=== PATIENT | male | born 1995 | race Caucasian/White ===

== ENCOUNTER 2022-02-26 13:07 | Inpatient (IN) | payer OTHER, BC ==
[2022-02-26] MEDS ORDERED: Fentanyl 100 MCG/2 ML VIAL ONE ×2 (13:27→15:16)
[2022-02-26] MEDS ORDERED: ISOVUE-370 76%-LOCM 1 ML ONE (13:35)
[2022-02-26 13:44] LABS: #Eosinphils 0.2 thou/uL (0.0-0.7); #Lymphocytes 1.8 thou/uL (1.20-3.40); #Monocytes 0.7 thou/uL (0.11-0.59); #Neutrophils 13.2 thou/uL (1.40-6.50); %Basophils 0.3 % (0.0-1.0); %Eosinophils 1.2 % (0.0-10.0); %Monocytes 4.6 % (0.0-10.0); %Neutrophils 82.9 % (42.0-75.0); Hemoglobin 16.3 g/dL (14.0-18.0); Mean Corpuscular HGB CONC 34.3 g/dL (32.0-36.0); Mean Corpuscular Volume 90.5 fL (78.0-98.0); Mean Platelet Volume 7.6 fL (7.4-10.4); Platelet Count 205 thou/uL (130-400); RBC Distribution Width 11.7 % (11.5-14.5); Red Blood Cell (RBC) Count 5.27 mill/uL (4.70-6.10); White Blood Cell (WBC) Count 15.9 thou/uL (4.8-10.8)
[2022-02-26 13:58] LABS: Prothrombin Time 13.7 sec (12.0-14.7)
[2022-02-26 14:05] LABS: PTT 19.8 sec (22.9-36.1)
[2022-02-26 14:06] LABS: ALT (SGPT) 80 U/L (8-55); AST (SGOT) 37 U/L (5-34); Albumin 4.5 g/dL (3.5-5.0); Alkaline Phosphatase 75 U/L (40-110); Anion Gap 14 mmol/L (10-20); BUN (Urea Nitrogen) 12 mg/dL (8.9-20.6); Bilirubin, Total 1.2 mg/dL (0.2-1.2); Calc. Creatinine Clearance 0 mL/min (70-130); Calcium 9.8 mg/dL (7.8-10.44); Carbon Dioxide 23 mmol/L (22-29); Chloride 105 mmol/L (98-107); Globulin 2.8 g/dL (2.4-3.5); Glucose 107 mg/dL (70-105); Potassium 3.8 mmol/L (3.5-5.1); Protein, Total 7.3 g/dL (6.0-8.3); Sodium 138 mmol/L (136-145)
[2022-02-26] MEDS ORDERED: Boostrix 0.5 ML (Tdap) VIAL ONE (14:38)
[2022-02-26] MEDS ORDERED: Ondansetron PF 4 MG/2 ML Vial ONE (14:38)
[2022-02-26] MEDS ORDERED: CEFAZOLIN 2 GM VIAL ONE (15:39)
[2022-02-26] MEDS ORDERED: Ketorolac Tromethamine 30 MG/ML VIAL ONE (15:39)
[2022-02-26] MEDS ORDERED: Dextrose 5% in Water 1,000 ML IV PRN (15:49)
[2022-02-26] MEDS ORDERED: Dextrose 50% Abboject 50 ML SYRINGE SLOW IVP PRN (15:49)
[2022-02-26] MEDS ORDERED: hydrALAZINE 20 MG/ML VIAL SLOW IVP PRN (15:49)
[2022-02-26] MEDS ORDERED: Ondansetron PF 4 MG/2 ML Vial IVP PRN (15:49)
[2022-02-26] MEDS ORDERED: Sodium Chloride 0.9% 1,000 ML IV SCH (16:00)
[2022-02-26 16:12] LABS: Lactic Acid 0.8 mmol/L (0.5-2.2)
[2022-02-26 16:15] LABS: Alcohol Less than 10 mg/dL (Less than 10); Magnesium 1.9 mg/dL (1.6-2.6); Phosphorus 2.5 mg/dL (2.3-4.7)
[2022-02-26] MEDS ORDERED: Potassium Phosphate 15 MMOL in Sodium Chloride 0.9% 250 ML 250 ML IVPB SCH (16:45)
[2022-02-26] MEDS: Acetaminophen/Codeine 30-300mg Tablet PO SCH ×2 (18:08→23:09)
[2022-02-26] MEDS: Morphine 4 MG/ML VIAL SLOW IVP PRN ×2 (18:13→23:10)
[2022-02-26] MEDS: Ketorolac Tromethamine 30 MG/ML VIAL IVP SCH ×2 (18:14→23:09)
[2022-02-26] MEDS: CEFAZOLIN 2 GM in Sodium Chloride 0.9% 100 ML IVPB SCH ×2 (18:19→18:33)
[2022-02-26 19:59] VITALS: BMI 23.7
[2022-02-26] MEDS: Gabapentin 300 MG CAP PO SCH (20:42)
[2022-02-26] MEDS: Senokot S 8.6-50 MG TAB PO SCH (20:44)
[2022-02-26] MEDS: Famotidine 20 MG TAB PO SCH (20:44)
[2022-02-26] MEDS: Silver Sulfadiazine 50 GM TUBE TOP SCH (22:17)
[2022-02-26 22:56] LABS: Bacteria/HPF None Seen HPF (None Seen); Bilirubin Negative (Negative); Blood, Urine Negative (Negative); Clarity Clear (Clear); Glucose, Urine (Dipstick) Normal (Negative); Ketone, Urine Trace mg/dL (Negative); Leukocyte Negative Leu/uL (Negative); Nitrite Negative (Negative); Protein, Urine (Dipstick) Negative (Neg-Trace); RBC/HPF 0-3 HPF (0-3); Specific Gravity, Urine 1.047 (1.002-1.036); Squamous Epithelial None Seen HPF (0-3); Urobilinogen Normal mg/dL (Less than 2); WBC/HPF 0-3 HPF (0-3)
[2022-02-26 23:00] LABS: Urine Culture Reflex No No
[2022-02-26 23:04] LABS: Amphetamine Not Detected (NotDetected); Barbiturates Screen Not Detected (NotDetected); Benzodiazepine Screen Not Detected (NotDetected); Cocaine Metabolite Screen Not Detected (NotDetected); Methadone Not Detected (NotDetected); Methamphetamine Not Detected (NotDetected); Opiate Screen Detected (NotDetected); Oxycodone Screen Not Detected (NotDetected); Phencyclidine (PCP) Not Detected (NotDetected); THC/Cannabinoid Screen Not Detected (NotDetected); Tricyclic Screen Not Detected (NotDetected)
[2022-02-26] MEDS: Acetaminophen/Codeine 30-300mg Tablet PO PRN (23:13)
[2022-02-27] MEDS: Morphine 4 MG/ML VIAL SLOW IVP PRN ×5 (03:08→20:00)
[2022-02-27] MEDS: Acetaminophen/Codeine 30-300mg Tablet PO SCH ×4 (05:48→23:41)
[2022-02-27] MEDS: Acetaminophen/Codeine 30-300mg Tablet PO PRN ×2 (05:49→11:43)
[2022-02-27] MEDS: Ketorolac Tromethamine 30 MG/ML VIAL IVP SCH ×4 (05:50→23:42)
[2022-02-27 06:32] LABS: #Basophils 0.1 thou/uL (0.0-0.2); #Eosinphils 0.2 thou/uL (0.0-0.7); #Lymphocytes 2.2 thou/uL (1.20-3.40); #Monocytes 0.8 thou/uL (0.11-0.59); #Neutrophils 4.2 thou/uL (1.40-6.50); %Basophils 0.7 % (0.0-1.0); %Eosinophils 2.4 % (0.0-10.0); %Lymphocytes 29.6 % (21.0-51.0); %Monocytes 10.9 % (0.0-10.0); %Neutrophils 56.4 % (42.0-75.0); Hemoglobin 13.6 g/dL (14.0-18.0); Mean Corpuscular HGB CONC 33.5 g/dL (32.0-36.0); Mean Corpuscular Hemoglobin 31.1 pg (27.0-31.0); Mean Corpuscular Volume 92.7 fL (78.0-98.0); Mean Platelet Volume 7.8 fL (7.4-10.4); Platelet Count 151 thou/uL (130-400); RBC Distribution Width 11.9 % (11.5-14.5); Red Blood Cell (RBC) Count 4.37 mill/uL (4.70-6.10); White Blood Cell (WBC) Count 7.4 thou/uL (4.8-10.8)
[2022-02-27 07:20] LABS: Anion Gap 9 mmol/L (10-20); BUN (Urea Nitrogen) 12 mg/dL (8.9-20.6); Calc. Creatinine Clearance 123 mL/min (70-130); Calcium 8.7 mg/dL (7.8-10.44); Carbon Dioxide 23 mmol/L (22-29); Chloride 107 mmol/L (98-107); Glucose 104 mg/dL (70-105); Phosphorus 3.3 mg/dL (2.3-4.7); Potassium 4.2 mmol/L (3.5-5.1); Sodium 135 mmol/L (136-145)
[2022-02-27] MEDS ORDERED: PHOS-NAK 1 PKT PACK PO SCH (08:15)
[2022-02-27] MEDS: Gabapentin 300 MG CAP PO SCH ×3 (09:32→20:01)
[2022-02-27] MEDS: Senokot S 8.6-50 MG TAB PO SCH ×2 (09:32→20:01)
[2022-02-27] MEDS: Famotidine 20 MG TAB PO SCH ×2 (09:34→20:01)
[2022-02-27] MEDS: Polyethylene Glycol 3350 17 GM Packet PO SCH (09:35)
[2022-02-27] MEDS: Cyclobenzaprine 10 MG TAB PO PRN (13:50)
[2022-02-27] MEDS: Silver Sulfadiazine 50 GM TUBE TOP SCH ×2 (16:09→22:13)
[2022-02-28] MEDS: Cyclobenzaprine 10 MG TAB PO PRN ×2 (03:09→13:34)
[2022-02-28] MEDS: Acetaminophen/Codeine 30-300mg Tablet PO SCH (05:18)
[2022-02-28] MEDS: Ketorolac Tromethamine 30 MG/ML VIAL IVP SCH (05:19)
[2022-02-28 06:13] LABS: #Eosinphils 0.4 thou/uL (0.0-0.7); #Lymphocytes 2.2 thou/uL (1.20-3.40); #Monocytes 0.7 thou/uL (0.11-0.59); #Neutrophils 4.2 thou/uL (1.40-6.50); %Basophils 0.4 % (0.0-1.0); %Eosinophils 4.8 % (0.0-10.0); %Monocytes 8.8 % (0.0-10.0); Mean Corpuscular HGB CONC 33.9 g/dL (32.0-36.0); Mean Corpuscular Hemoglobin 31.4 pg (27.0-31.0); Mean Corpuscular Volume 92.5 fL (78.0-98.0); Mean Platelet Volume 7.8 fL (7.4-10.4); Platelet Count 132 thou/uL (130-400); RBC Distribution Width 11.6 % (11.5-14.5); Red Blood Cell (RBC) Count 3.82 mill/uL (4.70-6.10); White Blood Cell (WBC) Count 7.4 thou/uL (4.8-10.8)
[2022-02-28 06:38] LABS: Anion Gap 9 mmol/L (10-20); BUN (Urea Nitrogen) 7 mg/dL (8.9-20.6); Calc. Creatinine Clearance 132 mL/min (70-130); Calcium 8.4 mg/dL (7.8-10.44); Carbon Dioxide 27 mmol/L (22-29); Chloride 106 mmol/L (98-107); Glucose 101 mg/dL (70-105); Magnesium 1.8 mg/dL (1.6-2.6); Phosphorus 3.1 mg/dL (2.3-4.7); Potassium 3.8 mmol/L (3.5-5.1); Sodium 138 mmol/L (136-145)
[2022-02-28] MEDS ORDERED: Magnesium 2 GM/50 ML(in water) 2 GM in Premix Bag 1 BAG IVPB SCH (08:00)
[2022-02-28] MEDS ORDERED: PHOS-NAK 1 PKT PACK PO SCH (08:00)
[2022-02-28] MEDS: Famotidine 20 MG TAB PO SCH (08:36)
[2022-02-28] MEDS: Gabapentin 300 MG CAP PO SCH ×2 (08:37→15:03)
[2022-02-28] MEDS: Senokot S 8.6-50 MG TAB PO SCH (08:37)
[2022-02-28] MEDS: Silver Sulfadiazine 50 GM TUBE TOP SCH (08:38)
[2022-02-28] MEDS: Polyethylene Glycol 3350 17 GM Packet PO SCH (08:38)
[2022-02-28] MEDS ORDERED: Acetaminophen/Codeine 30-300mg Tablet PO PRN (10:14)
[2022-02-28] MEDS ORDERED: traMADol HCl 50 MG TAB PO SCH (12:00)
[2022-02-28 12:19] VITALS: BP 114/67; TEMP 98.7
[2022-02-28] MEDS ORDERED: Ibuprofen 200 MG TAB PO SCH (14:00)
== END 2022-02-28 15:50 | disposition home or self-care (01) | DRG 200 ==
LOC: ERS 13:07 → SURG A 15:49
PROVIDERS: ADMIT Specialist; ATTEND Specialist
DX: S27.0XXA Traumatic pneumothorax, initial encounter (principal); S22.42XA Multiple fractures of ribs, left side, initial encounter for closed fracture; S27.321A Contusion of lung, unilateral, initial encounter; Z20.822 Contact with and (suspected) exposure to COVID-19; S42.002A Fracture of unspecified part of left clavicle, initial encounter for closed fracture; S42.102A Fracture of unspecified part of scapula, left shoulder, initial encounter for closed fracture; F17.210 Nicotine dependence, cigarettes, uncomplicated; R40.2412 Glasgow coma scale score 13-15, at arrival to emergency department; J45.909 Unspecified asthma, uncomplicated; Z79.899 Other long term (current) drug therapy; V29.9XXA Motorcycle rider (driver) (passenger) injured in unspecified traffic accident, initial encounter
CPT/HCPCS: 36415; 70450; 71045; 71260; 72125; 74177; 80048; 80053; 80306; 80307; 81001; 83605; 83735; 84100; 84484; 85025; 85610; 85730; 90471; 90715; 93005; 94640; 96365; 96375; 96376; G0390; J0690; J1885; J2270; J2405; J3010; J3475; J3490; J7050; J7620; Q9966; U0003; U0005